=== PATIENT | female | born 1980 | race Caucasian/White ===

== ENCOUNTER 2016-04-14 22:39 | Emergency (ER) ==
[2016-04-14] MEDS ORDERED: NS IV ONE (23:00)
[2016-04-14] MEDS ORDERED: CEREBYX IV ONE ×2 (23:00→23:12)
[2016-04-14] MEDS ORDERED: M.V.I.-12 10 ML, FOLIC ACID 1 MG, MAGNESIUM SULFATE 1 GM, THIAMINE 100 MG in NS 1,000 ML IV ONE (23:09)
[2016-04-14] MEDS ORDERED: SODIUM CHLORIDE 0.9% INJ ONE (23:10)
[2016-04-14] MEDS ORDERED: ATIVAN IV ONE (23:10)
[2016-04-14] MEDS ORDERED: PHENERGAN IV ONE (23:10)
[2016-04-14 23:12] LABS: MANUAL DIFF NEEDED? NO
[2016-04-14 23:16] LABS: BASO% 0.5 % (0.0-0.8); EOS# 0.33 X1000 (0.0-0.7); EOS% 3.4 % (0.0-10.0); HEMATOCRIT 43.2 % (37.0-47.0); HEMOGLOBIN 14.7 g/dL (12.0-16.0); IMM GRAN# 0.02 X1000 (0.0-0.04); IMM GRAN% 0.2 % (0.0-0.5); LYMPH# 1.91 X1000 (1.2-3.4); LYMPH% 19.7 % (20.5-51.1); MCH 30.9 PG (27-31); MCV 90.8 FL (81-99); MONO# 0.63 X1000 (0.11-0.59); MONO% 6.5 % (1.7-9.3); MPV 10.2 FL (7.4-10.4); NEUT% 69.7 % (42.2-75.2); PLT 527 X1000 (130-400); RBC 4.76 XMIL (4.2-5.4)
--- NOTE | 2016-04-14 23:25 | PROVIDER DOCUMENTATION ---
Addendum entered and electronically signed by Elodia Chacon Scribe 04/15/16 02:20 : Departure - Departure Time of Disposition Order: 02:20 DIAGNOSIS: Seizure disorder, Alcohol abuse, Drug abuse Disposition: HOME 01 Certified Medical Emergency: Emergent Condition: Stable Additional Instructions: ED Follow Up Instructions: You have been treated by a care provider in the Emergency Department. These instructions are being provided to you so you can have an understanding of how to care for yourself upon discharge. Upon discharge from the Emergency Department, you are responsible for making arrangements for follow-up care by a physician of your choice. Take all prescribed medications as directed. Return to the Emergency Department immediately for any new or worsening symptoms. You may call the Physician Referral phone number at [phone] to obtain a list of Physicians who are taking new patients. Prescriptions: Phenytoin [Dilantin] 100 mg PO TID #90 capsule Referrals: None,PCP [Primary Care Provider] - Instructions: Seizure, Adult, [id number] Addendum entered and electronically signed by Elodia Chacon Scribe 04/15/16 02:18 : Progress - PLAN OF CARE/RESULTS Progress/Plan/Lab Results: Laboratory Tests 04/14/16 04/14/16 04/14/16 22:51 22:51 22:51 WBC 9.70 RBC 4.76 Hgb 14.7 Hct 43.2 MCV 90.8 MCH 30.9 MCHC 34.0 RDW Std Deviation 14.9 H Plt Count 527 H MPV 10.2 Immature Gran % (Auto) 0.2 Neut % (Auto) 69.7 Lymph % (Auto) 19.7 L [place] % (Auto) 6.5 Eos % (Auto) 3.4 Baso % (Auto) 0.5 Immature Gran # (Auto) 0.02 Neut # (Auto) 6.76 H Lymph # (Auto) 1.91 [place] # (Auto) 0.63 H Eos # (Auto) 0.33 Baso # (Auto) 0.05 Sodium 135 L Potassium 3.8 Chloride 98 Carbon Dioxide 20 L Anion Gap 17 BUN 5 L Creatinine 0.8 Estimated GFR/1.73 m2 > 60 BUN/Creatinine Ratio 6 Glucose 100 Calculated Osmolality 267 Calcium 9.3 Magnesium Total Bilirubin 0.43 AST 12 ALT 8 L Alkaline Phosphatase 66 Total Protein 7.2 Albumin 4.3 Globulin 2.9 Albumin/Globulin Ratio 1.5 Lipase Urine Source Urine Color Urine Turbidity Urine pH Ur Specific [place] Urine Protein Ur Glucose (Stick) Ur Ketones (Stick) Urine Blood Urine Nitrite Urine Bilirubin Urobilinogen Dipstick Urine Leukocytes Urine WBC (Auto) Urine RBC (Auto) U Epithel Cells (Auto) Urine Bacteria (Auto) Urine Opiates Screen Ur Oxycodone Screen Ur Methadone, Qual Ur Barbiturates Screen Ur Phencyclidine Scrn Ur Amphetamines Screen U Benzodiazepines Scrn Urine Cocaine Screen U Cannabinoids Screen Plasma/Serum Ethyl Alc 04/14/16 04/15/16 04/15/16 22:51 01:43 01:43 WBC RBC Hgb Hct MCV MCH MCHC RDW Std Deviation Plt Count MPV Immature Gran % (Auto) Neut % (Auto) Lymph % (Auto) [place] % (Auto) Eos % (Auto) Baso % (Auto) Immature Gran # (Auto) Neut # (Auto) Lymph # (Auto) [place] # (Auto) Eos # (Auto) Baso # (Auto) Sodium Potassium Chloride Carbon Dioxide Anion Gap BUN Creatinine Estimated GFR/1.73 m2 BUN/Creatinine Ratio Glucose Calculated Osmolality Calcium Magnesium 1.8 Total Bilirubin AST ALT Alkaline Phosphatase Total Protein Albumin Globulin Albumin/Globulin Ratio Lipase 115 H Urine Source CLEAN CATCH Urine Color YELLOW Urine Turbidity CLEAR Urine pH 5.5 Ur Specific [place] 1.008 Urine Protein NEGATIVE Ur Glucose (Stick) NEGATIVE Ur Ketones (Stick) NEGATIVE Urine Blood NEGATIVE Urine Nitrite NEGATIVE Urine Bilirubin NEGATIVE Urobilinogen Dipstick NORMAL Urine Leukocytes NEGATIVE Urine WBC (Auto) <10 Urine RBC (Auto) <10 U Epithel Cells (Auto) <10 Urine Bacteria (Auto) NEGATIVE Urine Opiates Screen NONE DETECTED Ur Oxycodone Screen PRESUMPTIVE POSITIVE A Ur Methadone, Qual NONE DETECTED Ur Barbiturates Screen NONE DETECTED Ur Phencyclidine Scrn NONE DETECTED Ur Amphetamines Screen PRESUMPTIVE POSITIVE A U Benzodiazepines Scrn NONE DETECTED Urine Cocaine Screen NONE DETECTED U Cannabinoids Screen PRESUMPTIVE POSITIVE A Plasma/Serum Ethyl Alc Orders Category Date Time Status ED: Urine Bedside ORDERED Care 04/14/16 23:05 Active CHEST-PORTABLE [RAD] Stat Exams 04/14/16 23:09 Taken ALCOHOL BLOOD Stat Lab 04/14/16 22:51 Completed CBC WITH ELECTRONIC DIFF [HEME] Stat Lab 04/14/16 22:51 Completed CMP [COMPREHENSIVE METABOLIC PANEL] [CHEM] Stat Lab 04/14/16 22:51 Completed LIPASE [CHEM] Stat Lab 04/14/16 22:51 Completed MAGNESIUM [CHEM] Stat Lab 04/14/16 22:51 Completed UDS [URINE DRUG SCREEN] Stat Lab 04/14/16 23:09 Completed URINALYSIS W/POSS RFLX CULT [URINALYSIS] Stat Lab 04/14/16 23:05 Completed 0.9% Sodium Chloride Inj [Ns] 1,000 ml Med 04/14/16 23:09 Discontinued Mvi [M.v.i.-12] 10 ml Folic Acid 1 mg Magnesium Sulfate 1 gm Thiamine 100 mg IV 999 mls/hr Diphenhydramine [Benadryl] Med 04/15/16 00:02 Discontinued 25 mg IV NOW ONE Fosphenytoin [Cerebyx] 900 mg Med 04/14/16 23:00 Discontinued 0.9% Sodium Chloride Inj [Ns] 100 ml IV ONCE Hydrocodone/APAP 10 mg/325 mg [[place]-10] Med 04/15/16 00:40 Discontinued 1 each PO NOW ONE Lorazepam [Ativan] Med 04/14/16 23:10 Discontinued 1 mg IV NOW ONE Morphine Med 04/14/16 23:50 Discontinued 4 mg IV NOW ONE Promethazine [Phenergan] Med 04/14/16 23:10 Discontinued 25 mg IV NOW ONE Sodium Chloride 0.9% Med 04/14/16 23:10 Discontinued 10 ml INJ NOW ONE Vital Signs - 24 hr 04/14/16 22:46 Temperature 98.7 F Pulse Rate 140 H Respiratory 18 Rate Blood Pressure 150/115 O2 Sat by Pulse 99 Oximetry Original Note: HPI-General Adult - General Chief Complaint: Seizure Stated Complaint: SEIZURES, VOMITING Time Seen by Provider: 04/14/16 22:49 Source: patient Allergies/Adverse Reactions: Patient Allergies Allergy/AdvReac Type Severity Reaction Status Date / Time doxycycline Allergy HIVES Verified 04/14/16 23:03 codeine AdvReac Intermediate NAUSEA Verified 04/14/16 23:03 - History of Present Illness -Gen Adult Nature of Presenting Problems: 35 y/o f presents to the ed with vomiting. pt states she has been vomiting since yesterday and also had X 2 small seizures today only lasting a couple of minutes. pt reports she has been out of her medication X 1 month. pt also states she has been drinking alcohol daily up until the last few days and feels like she maybe in alcohol withdrawal. pt denies chest pain/palpitations. Severity: reports: mild Onset/Duration: reports: this morning Timing: reports: still present Associated Symptoms: reports: vomiting Similar Symptoms Previously?: No Recently seen or treated by another doctor?: No Review of Systems - Adult - REVIEW OF SYSTEMS - ADULT Constitutional: denies: chills, fever Gastrointestinal: reports: vomiting. denies: abdominal pain Neurological: reports: seizure. denies: dizziness/vertigo Past History - Adult - PAST MEDICAL HISTORY-ADULT Review of Records: reports: Old Records Reviewed, Nursing Assessment Review, Medications Reviewed Major Childhood Illnesses: reports: denies history Cardiovascular: reports: denies history Respiratory: reports: asthma, COPD Gastrointestinal: reports: GERD Obstetrical/Gynecological: reports: denies history Genitourinary: reports: denies history Musculoskeletal: reports: denies history Neurological: reports: headaches/migraines, Seizures/Epilepsy Psychiatric: reports: anxiety, bipolar Endocrine/Immune: reports: denies history Other Conditions: reports: denies history - PRIOR SURGERIES/PROCEDURES Surgical/Procedure History: reports: reviewed, not pertinent, BTL, orthopedic ( extremity) (left ankle Sx), other (chest tube for saman lungs) - PRIOR HOSPITALIZATIONS Prior Hospitalizations: reports: for similar symptoms - IMMUNIZATION STATUS Childhood Immunizations: See Nurse Assessment Flu Vaccine: See Nurse Assessment - FAMILY HISTORY Family History: reviewed, not pertinent - SOCIAL HISTORY Smoking: cigarettes, less than 1 pack/day Provider spent 3-5 mins advising pt. on dangers of tobacco.: Discussed manners to quit use, and f/u contacts for add'l counseling. Substance Use: alcohol Alcohol Use Frequency: 5-6 times a week Physical Exam-General - PHYSICAL EXAM-ADULT Initial Vital Signs Reviewed: Yes - CONSTITUTIONAL General Appearance: alert, no apparent distress - EYES Eyes: PERRL/EOMI, pink conjunctivae, fundi clear, no AV nicking - HEAD, EARS, NOSE, MOUTH & THROAT HENMT: normocephalic/atraumatic, moist mucous membranes, normal ENT inspection, TMs normal - NECK Neck: non-tender, full range of motion, supple - RESPIRATORY Respiratory: chest non-tender, lungs clear, normal breath sounds - CARDIOVASCULAR Cardiovascular: normal peripheral pulses, tachycardia - GASTROINTESTINAL (ABDOMEN) Abdominal Exam: normal bowel sounds, non tender, soft - LYMPHATIC Lymphatic: no adenopathy - MUSCULOSKELETAL Back Exam: normal inspection - SKIN Integumentary: normal color, normal turgor, warm/dry - PSYCHIATRIC Psych/Mental Status: normal mood/affect, normal thought content, normal thought process, oriented x 3 Progress - PLAN OF CARE/RESULTS Progress/Plan/Lab Results: plan of care: labs Laboratory Tests 04/14/16 04/14/16 04/14/16 22:51 22:51 22:51 WBC 9.70 RBC 4.76 Hgb 14.7 Hct 43.2 MCV 90.8 MCH 30.9 MCHC 34.0 RDW Std Deviation 14.9 H Plt Count 527 H MPV 10.2 Immature Gran % (Auto) 0.2 Neut % (Auto) 69.7 Lymph % (Auto) 19.7 L [place] % (Auto) 6.5 Eos % (Auto) 3.4 Baso % (Auto) 0.5 Immature Gran # (Auto) 0.02 Neut # (Auto) 6.76 H Lymph # (Auto) 1.91 [place] # (Auto) 0.63 H Eos # (Auto) 0.33 Baso # (Auto) 0.05 Sodium 135 L Potassium 3.8 Chloride 98 Carbon Dioxide 20 L Anion Gap 17 BUN 5 L Creatinine 0.8 Estimated GFR/1.73 m2 > 60 BUN/Creatinine Ratio 6 Glucose 100 Calculated Osmolality 267 Calcium 9.3 Magnesium Total Bilirubin 0.43 AST 12 ALT 8 L Alkaline Phosphatase 66 Total Protein 7.2 Albumin 4.3 Globulin 2.9 Albumin/Globulin Ratio 1.5 Lipase Plasma/Serum Ethyl Alc 04/14/16 22:51 WBC RBC Hgb Hct MCV MCH MCHC RDW Std Deviation Plt Count MPV Immature Gran % (Auto) Neut % (Auto) Lymph % (Auto) [place] % (Auto) Eos % (Auto) Baso % (Auto) Immature Gran # (Auto) Neut # (Auto) Lymph # (Auto) [place] # (Auto) Eos # (Auto) Baso # (Auto) Sodium Potassium Chloride Carbon Dioxide Anion Gap BUN Creatinine Estimated GFR/1.73 m2 BUN/Creatinine Ratio Glucose Calculated Osmolality Calcium Magnesium 1.8 Total Bilirubin AST ALT Alkaline Phosphatase Total Protein Albumin Globulin Albumin/Globulin Ratio Lipase 115 H Plasma/Serum Ethyl Alc Orders Category Date Time Status ED: Urine Bedside ORDERED Care 04/14/16 23:05 Active CHEST-PORTABLE [RAD] Stat Exams 04/14/16 23:09 Taken ALCOHOL BLOOD Stat Lab 04/14/16 22:51 Completed CBC WITH ELECTRONIC DIFF [HEME] Stat Lab 04/14/16 22:51 Completed CMP [COMPREHENSIVE METABOLIC PANEL] [CHEM] Stat Lab 04/14/16 22:51 Completed LIPASE [CHEM] Stat Lab 04/14/16 22:51 Completed MAGNESIUM [CHEM] Stat Lab 04/14/16 22:51 Completed UDS [URINE DRUG SCREEN] Stat Lab 04/14/16 23:09 Ordered URINALYSIS W/POSS RFLX CULT [URINALYSIS] Stat Lab 04/14/16 23:05 Uncollected 0.9% Sodium Chloride Inj [Ns] 1,000 ml Med 04/14/16 23:09 Discontinued Mvi [M.v.i.-12] 10 ml Folic Acid 1 mg Magnesium Sulfate 1 gm Thiamine 100 mg IV 999 mls/hr Diphenhydramine [Benadryl] Med 04/15/16 00:02 Discontinued 25 mg IV NOW ONE Fosphenytoin [Cerebyx] 900 mg Med 04/14/16 23:00 Discontinued 0.9% Sodium Chloride Inj [Ns] 100 ml IV ONCE Hydrocodone/APAP 10 mg/325 mg [[place]-10] Med 04/15/16 00:40 Discontinued 1 each PO NOW ONE Lorazepam [Ativan] Med 04/14/16 23:10 Discontinued 1 mg IV NOW ONE Morphine Med 04/14/16 23:50 Discontinued 4 mg IV NOW ONE Promethazine [Phenergan] Med 04/14/16 23:10 Discontinued 25 mg IV NOW ONE Sodium Chloride 0.9% Med 04/14/16 23:10 Discontinued 10 ml INJ NOW ONE Vital Signs - 24 hr 04/14/16 22:46 Temperature 98.7 F Pulse Rate 140 H Respiratory 18 Rate Blood Pressure 150/115 O2 Sat by Pulse 99 Oximetry - XRAY 1 XRAY Study: Chest XRAY Interpretation: normal Departure - Departure Time of Disposition Order: 01:37 DIAGNOSIS: Seizure disorder, Alcohol abuse Disposition: HOME 01 Certified Medical Emergency: Emergent Condition: Stable Additional Instructions: ED Follow Up Instructions: You have been treated by a care provider in the Emergency Department. These instructions are being provided to you so you can have an understanding of how to care for yourself upon discharge. Upon discharge from the Emergency Department, you are responsible for making arrangements for follow-up care by a physician of your choice. Take all prescribed medications as directed. Return to the Emergency Department immediately for any new or worsening symptoms. You may call the Physician Referral phone number at [phone] to obtain a list of Physicians who are taking new patients. Attestation - Scribe Verification/Attestation Scribe:: Elodia Chacon Acting as Scribe for:: Solomon Morejon Scribe documention review:: This chart was documented by a scribe and accurately reflects the service the provider performed and the decisions made by the provider.
[2016-04-14 23:27] LABS: AGAP 17; ALBUMIN 4.3 g/dL (3.5-5.0); ALKALINE PHOSPHATASE 66 U/L (32-104); BUN 5 mg/dL (8-22); CALCIUM 9.3 mg/dL (8.8-10.2); CHLORIDE 98 mmol/L (98-107); COSMO 267; GOT 12 U/L (10-30); GPT 8 U/L (10-36); POTASSIUM 3.8 mmol/L (3.5-5.1); SODIUM 135 mmol/L (136-145); TCO2 20 mmol/L (25-35); TOTAL BILIRUBIN 0.43 mg/dL (0.20-1.00); TOTAL PROTEIN 7.2 g/dL (6.3-8.3)
[2016-04-14] MEDS ORDERED: MORPHINE IV ONE (23:50)
[2016-04-15] MEDS ORDERED: BENADRYL IV ONE (00:02)
[2016-04-15 00:11] LABS: MAGNESIUM 1.8 mg/dL (1.5-2.7)
[2016-04-15] MEDS ORDERED: NORCO-10 PO ONE (00:40)
[2016-04-15 01:55] LABS: URINE CULTURE NEEDED? NO; URINE MICRO REVIEW NEEDED? NO; URINE SOURCE CLEAN CATCH
[2016-04-15 01:58] LABS: BILIRUBIN URINE NEGATIVE (NEGATIVE); BLOOD URINE NEGATIVE (NEGATIVE); COLOR YELLOW; GLUCOSE URINE NEGATIVE (NEGATIVE); LEUKOCYTES URINE NEGATIVE (NEGATIVE); NITRITE URINE NEGATIVE (NEGATIVE); PH URINE 5.5; PROTEIN URINE NEGATIVE (NEGATIVE); SP GRAVITY URINE 1.008; TURBIDITY URINE CLEAR (CLEAR); UROBILINOGEN URINE NORMAL (NORMAL)
[2016-04-15 01:59] LABS: UR EPITHELIAL CELLS <10 /HPF (<10); URINE BACTERIA NEGATIVE /HPF; URINE RBC <10 /HPF (<10); URINE WBC <10 /HPF (<10)
[2016-04-15 02:09] LABS: UR AMPHETAMINES QUAL PRESUMPTIVE POSITIVE (NONE DETECT); UR BARBITUATES QUAL NONE DETECTED (NONE DETECT); UR BENZODIAZEPIN QUAL NONE DETECTED (NONE DETECT); UR CANNABINOIDS QUAL PRESUMPTIVE POSITIVE (NONE DETECT); UR COCAINE QUAL NONE DETECTED (NONE DETECT); UR METHADONE QUAL NONE DETECTED (NONE DETECT); UR OPIATES QUAL NONE DETECTED (NONE DETECT); UR OXYCODONE QUAL PRESUMPTIVE POSITIVE (NONE DETECT); UR PCP QUAL NONE DETECTED (NONE DETECT)
[2016-04-15 02:32] VITALS: BP 168/98
--- NOTE | 2016-04-15 08:24 | Diag Imaging Result Document ---
PROCEDURE NAME: CHEST-PORTABLE - 04/14/2016 PORTABLE CHEST: COMPARISON: 07/23/2015. FINDINGS: The lungs are well expanded. The heart is not enlarged. The vessels are not distended. There are granulomas found in the midleft lung. There are no infiltrates. No pleural effusions identified. There are several old left rib fractures. IMPRESSION: No pneumonia.
== END 2016-04-15 02:32 | disposition home or self-care (01) ==
LOC: ED 22:39
DX: G40.909 Epilepsy, unspecified, not intractable, without status epilepticus (principal); R11.10 Vomiting, unspecified; F10.10 Alcohol abuse, uncomplicated; F19.10 Other psychoactive substance abuse, uncomplicated; J44.9 Chronic obstructive pulmonary disease, unspecified; R51 Headache; F17.210 Nicotine dependence, cigarettes, uncomplicated; Z71.6 Tobacco abuse counseling
CPT/HCPCS: 36415; 71010; 80053; 81001; 83690; 83735; 85025; 96365; 96366; 96368; 96375; G0480; J2060; J2550; J3411; J3475; J7030; Q2009